=== PATIENT | female | born 1965 | race Caucasian/White ===

== ENCOUNTER 2019-09-29 13:52 | Emergency (ER) | payer MEDICAID, OTHER ==
[2019-09-29 14:30] LABS: EOSINOPHILS % (AUTO) 6.3 %; HGB - HEMOGLOBIN 14.4 g/dL (12.0-16.0); LYMPHOCYTES % (AUTO) 55.6 %; MEAN CORPUSCULAR HEMOGLOBIN 29.1 pg (27.0-31.0); MEAN CORPUSCULAR HGB CONC 32.7 g/dL (32.0-36.0); MEAN CORPUSCULAR VOLUME 89.1 fL (81.0-99.0); MEAN PLATELET VOLUME 9.7 fL (7.9-10.8); MONOCYTES % (AUTO) 10.4 %; NEUTROPHILS % (AUTO) 26.6 %; PLT - PLATELET COUNT 255 10^3/uL (130-450); RED BLOOD COUNT 4.94 10^6/uL (4.20-5.40); RED CELL DISTRIBUTION WIDTH 13.1 % (12.0-15.0); WHITE BLOOD COUNT 7.1 x10^3/uL (4.8-10.8)
[2019-09-29 14:32] LABS: BILIRUBIN,URINE NEGATIVE (NEGATIVE); GLUCOSE, URINE (UA) NEGATIVE (NEGATIVE); KETONES,URINE (UA) NEGATIVE (NEGATIVE); LEUKOCYTE ESTERASE, URINE MODERATE (NEGATIVE); NITRITE,URINE NEGATIVE (NEGATIVE); OCCULT BLOOD,URINE NEGATIVE (NEGATIVE); PROTEIN,URINE NEGATIVE (NEGATIVE); UROBILINOGEN,URINE 0.2 (NORMAL) E.U./dL (NORMAL)
[2019-09-29 14:35] LABS: CLARITY,URINE CLEAR (CLEAR); HCG UR QUAL NEGATIVE
[2019-09-29 14:36] LABS: ABNORMAL LYMPHS % (MANUAL) 0 %; BAND NEUTROPHILS % (MANUAL) 0 %
[2019-09-29 14:42] LABS: ALBUMIN 4.1 g/dL (3.2-5.5); ALBUMIN/GLOBULIN RATIO 1.1 (1.0-2.2); BILIRUBIN,TOTAL 1.4 mg/dL (0.2-1.0); CALCIUM 9.5 mg/dL (8.5-10.3); TOTAL PROTEIN 7.9 g/dL (6.7-8.2)
--- NOTE | 2019-09-29 14:44 | ED Physician Documentation ---
PD HPI ABD PAIN - Stated complaint Stated Complaint: R SIDE PX - Chief complaint Chief Complaint: Abd Pain - History obtained from History obtained from: Patient - History of Present Illness Timing - onset: Other (54-year-old woman status post remote appendectomy presents with right-sided abdominal pain and flank pain is been going on for about a week. She says she has had a tactile fever with it. Pain does not change after eating. She says it is better if she walks around. She denies urinary or bowel complaints. No nausea. Declines pain medication although says the pain is an 8 out of 10. She says she had similar symptoms about a year ago, and had gallstones. She notes that at that time her liver enzymes were elevated.) Review of Systems Ten Systems: 10 systems reviewed and negative Constitutional: denies: Fever, Chills Cardiac: denies: Chest pain / pressure, Palpitations Respiratory: denies: Dyspnea, Cough PD PAST MEDICAL HISTORY - Past Medical History Past Medical History: No Cardiovascular: None Respiratory: None Neuro: None Endocrine/Autoimmune: None GI: None TELEPHONE CLERK TELEGRAPH OFFICE: None : None HEENT: None Psych: None Musculoskeletal: None Derm: None - Past Surgical History Past Surgical History: No - Present Medications Home Medications: Ambulatory Orders Medication Instructions Recorded Confirmed Hydrocodone/Acetaminophen 1 - 2 each PO Q6H PRN #14 tablet 09/29/19 [Hydrocodon-Acetaminophen 5-325] - Allergies Allergies/Adverse Reactions: Allergies Allergy/AdvReac Type Severity Reaction Status Date / Time No Known Drug Allergies Allergy Verified 09/29/19 14:05 - Social History Does the pt smoke?: No Smoking Status: Never smoker - Immunizations Immunizations are current?: Yes - POLST Patient has POLST: No PD ED PE NORMAL - Vitals Vital signs reviewed: Yes - General General: Alert and oriented X 3, No acute distress, Other (Well-appearing woman in no distress) - Neck Neck: Supple, no meningeal sign, No bony TTP - Cardiac Cardiac: RRR, No murmur - Respiratory Respiratory: No respiratory distress, Clear bilaterally - Abdomen Abdomen: Normal bowel sounds, Soft, Other (She is tender to the right abdomen but also the right flank. Negative Deluca sign. The abdominal tenderness seems more diffuse than is classic for a gallbladder source.) - Back Back: No spinal TTP, Other (She is tender over the right flank) - Derm Derm: Normal color, Warm and dry - Extremities Extremities: No edema, No calf tenderness / cord - Neuro Neuro: Alert and oriented X 3, Normal speech - Psych Psych: Normal mood, Normal affect Results - Vitals Vitals: Vital Signs - 24 hr 09/29/19 09/29/19 14:05 16:03 Temperature 36.5 C 37.1 C Heart Rate 91 67 Respiratory 16 16 Rate Blood Pressure 147/114 H 152/93 H O2 Saturation 100 99 Oxygen O2 Source Room air - Labs Labs: Laboratory Tests 09/29/19 09/29/19 09/29/19 14:14 14:25 14:25 WBC 7.1 RBC 4.94 Hgb 14.4 Hct 44.0 MCV 89.1 MCH 29.1 MCHC 32.7 RDW 13.1 Plt Count 255 MPV 9.7 Neut # (Auto) Not Reportable Lymph # (Auto) Not Reportable Ada # (Auto) Not Reportable Eos # (Auto) Not Reportable Baso # (Auto) Not Reportable Absolute Nucleated RBC Not Reportable Total Counted 100 Band Neuts % (Manual) 0 Reactive Lymphs % (Man) 12 Abnorm Lymph % (Manual) 0 Nucleated RBC % Not Reportable Neutrophils # (Manual) 1.5 Lymphocytes # (Manual) 4.6 H Monocytes # (Manual) 0.4 Eosinophils # (Manual) 0.5 Basophils # (Manual) 0.1 Differential Comment MANUAL DIFFERENTIAL Platelet Estimate NORMAL (130-450,000) Platelet Morphology NORMAL APPEARANCE RBC Morph Micro Appear NORMAL APPEARANCE Sodium 140 Potassium 4.4 Chloride 107 Carbon Dioxide 24 Anion Gap 9.0 BUN 10 Creatinine 1.0 Estimated GFR (MDRD) 58 L Glucose 102 H Calcium 9.5 Total Bilirubin 1.4 H AST 22 ALT 14 Alkaline Phosphatase 59 Total Protein 7.9 Albumin 4.1 Globulin 3.8 Albumin/Globulin Ratio 1.1 Lipase 28 Urine Color YELLOW Urine Clarity CLEAR Urine pH 8.0 H Ur Specific [place] 1.015 Urine Protein NEGATIVE Urine Glucose (UA) NEGATIVE Urine Ketones NEGATIVE Urine Occult Blood NEGATIVE Urine Nitrite NEGATIVE Urine Bilirubin NEGATIVE Urine Urobilinogen 0.2 (NORMAL) Ur Leukocyte Esterase MODERATE H Urine RBC 0-5 Urine WBC 4-5 Ur Squamous Epith Cells MOD Squamous H Urine Bacteria Rare Ur Microscopic Review INDICATED Urine Culture Comments NOT INDICATED Urine HCG, Qual NEGATIVE - Rads (name of study) CT a/p Radiology: EMP read contemporaneously (multiple Hepatic cysts, duplicated right infrarenal collecting system.) PD MEDICAL DECISION MAKING - ED course ED course: Patient with some progressive right-sided abdominal pain. Has a history of gallstones, but the overall picture seems atypical for biliary source. Her liver enzymes are basically normal, her bili is 1.4 but no evidence of obstruction or transaminitis. Results of CT showing multiple cysts in the liver and a right duplicated collecting system. No evidence of ureteral stone. No evidence of cholecystitis. She was nontender on reevaluation and declined pain medication. Good be reasonable for her to follow-up with a hepatobiliary surgeon to discuss whether the pain might be from her cysts or still from a biliary source. Departure - Departure Disposition: 01 Home, Self Care Clinical Impression: Abdominal pain Qualifiers: Abdominal location: right upper quadrant Qualified Code(s): R10.11 - Right upper quadrant pain Condition: Good Record reviewed to determine appropriate education?: Yes Instructions: ED Abdominal Pain Unkn Cause Prescriptions: Hydrocodone/Acetaminophen [Hydrocodon-Acetaminophen 5-325] 1 - 2 each PO Q6H PRN #14 tablet PRN Reason: pain Comments: CAT scan today shows multiple liver cysts. I wonder if this might be the cause of your pain. I think it is reasonable to follow-up with hepatobiliary surgeon, next available appointment for further evaluation and treatment. Return if pain or other symptoms worsen. I have given you a printout of [facility] the sort of surgery at [facility].
[2019-09-29 14:46] LABS: BACTERIA,URINE Rare /HPF (None Seen); RBC,URINE 0-5 /HPF (0-5); SQUAMOUS EPITHELIAL CELL,UR MOD Squamous (<= Few)
[2019-09-29 15:08] LABS: BASOPHILS # (MANUAL) 0.1 10^3/uL (0-0.1); BASOPHILS % (MANUAL) 1 %; EOSINOPHILS # (MANUAL) 0.5 10^3/uL (0-0.7); LYMPHOCYTES # (MANUAL) 4.6 10^3/uL (1.5-3.5); LYMPHOCYTES % (MANUAL) 53 %; MONOCYTES # (MANUAL) 0.4 10^3/uL (0.0-1.0)
[2019-09-29 15:09] LABS: DIFFERENTIAL COMMENT MANUAL DIFFERENTIAL; PLATELET ESTIMATE, MANUAL NORMAL (130-450,000) (NORMAL); PLATELET MORPHOLOGY NORMAL APPEARANCE (NORMAL); RBC MORPHOLOGY (MULTIPLE) NORMAL APPEARANCE (NORMAL)
--- NOTE | 2019-09-29 16:20 | CT Report ---
Reason: R flank / abd pain Procedure Date: 09/29/2019 Accession Number: [id number] / [id number] Procedure: CT - Abdomen/Pelvis WO CPT Code: Final Report FULL RESULT: EXAM: CT ABDOMEN AND PELVIS (CT KUB) EXAM DATE: 09/29/2019 02:58 PM. CLINICAL HISTORY: R flank / abd pain. COMPARISONS: None. TECHNIQUE: Routine axial helical CT imaging was performed through the abdomen and pelvis without IV contrast. Reconstructions: Coronal and sagittal. In accordance with CT protocol optimization, one or more of the following dose reduction techniques were utilized for this exam: automated exposure control, adjustment of mA and/or KV based on patient size, or use of iterative reconstructive technique. FINDINGS: Lung Bases: Clear. Right Kidney/Ureter: No hydronephrosis, hydroureter, or stones. Duplex intrarenal collecting system. No obviously suspicious lesion. No perinephric fluid or fat stranding. Left Kidney/Ureter: No hydronephrosis, hydroureter, or stones. No suspicious lesion identified. No perinephric fluid or fat stranding. Other Solid Organs: Multiple discrete hypodensities throughout the liver with largest up to 4.7 cm in diameter in the left lobe, compatible with cysts. The sub-centimeters hypodensities are too small to fully characterize. No hepatosplenomegaly. Grossly unremarkable pancreas and adrenal glands. Gallbladder/Bile Ducts: Partially contracted gallbladder. No calcified gallstones or obvious ductal dilatation. Peritoneal Cavity: Small hiatus hernia. No bowel obstruction or focal inflammatory process identified. Appendix is not identifiable. No free fluid, free air, or mesenteric adenopathy. A tiny fat-containing umbilical hernia. Retroperitoneum: No mass or adenopathy. Pelvic Organs: No gross abnormality of the partially distended bladder. [employer]ING [employer]IZED SQUAD organs essentially unremarkable, noting a 1 cm calcification compatible with node adjacent to the left ovary. No abnormal fluid collection or pathologic adenopathy. Vasculature: No aneurysm. Bones: Mild degenerative changes of the spine. IMPRESSION: 1. No hydronephrosis, stones, or acute process identified on noncontrast scan. 2. Duplex right intrarenal collecting system. 3. Multiple hepatic cysts. No hepatosplenomegaly. [facility]
[2019-09-29 16:45] VITALS: BP 156/96
== END 2019-09-29 17:00 | disposition home or self-care (01) ==
LOC: ED 13:52
DX: R10.11 Right upper quadrant pain (principal); K76.89 Other specified diseases of liver; Q64.8 Other specified congenital malformations of urinary system
CPT/HCPCS: 36415; 74176; 80053; 81001; 81003; 81025; 83690; 85025; 87086; 99284